=== PATIENT | male | born 1970 | race Caucasian/White ===

== ENCOUNTER → 2023-09-25 18:03 | Outpatient (REF) | payer BC, SELFPAY | LOC: MRI 3T 18:03 | PROVIDERS: ATTENDING PHYSICIAN Specialist; FAMILY PHYSICIAN Family Medicine | DX: C61 Malignant neoplasm of prostate (principal) | CPT/HCPCS: 72197; A9575 ==

== ENCOUNTER → 2025-03-10 07:11 | Outpatient (REF) | payer BC, SELFPAY | LOC: MRI 3T 07:11 | PROVIDERS: ATTENDING PHYSICIAN Specialist; FAMILY PHYSICIAN Physician Assistant Medical | DX: C61 Malignant neoplasm of prostate (principal) | CPT/HCPCS: 72197; A9575 ==